=== PATIENT | female | born 1995 | race Caucasian/White ===

== ENCOUNTER 2021-01-18 15:32 | Inpatient (IN) | payer OTHER ==
[~2021-01-18] VITALS: Ht 170.2 cm; Wt 74.8 kg
[2021-01-18 16:16] LABS: HEMOGLOBIN 13.5 gm/dl (12.3-15.3); RED BLOOD COUNT 4.35 M/UL (4.00-5.10); WHITE BLOOD COUNT 13.2 K/UL (4.5-11.0)
[2021-01-20 04:50] LABS: HEMOGLOBIN 12.7 gm/dl (12.3-15.3)
[2021-01-21] MEDS ORDERED: COLACE 100MG C100 MG PO (13:48)
[2021-01-21] MEDS ORDERED: IBUPROFEN600 MG PO (13:48)
[2021-01-21] MEDS ORDERED: AZITHROMYCIN250 MG PO (13:48)
== END 2021-01-21 20:13 | disposition home or self-care (01) | DRG 805 ==
LOC: GENOP 15:32 → OB 15:51
PROVIDERS: Obstetrics & Gynecology; ADMIT Obstetrics & Gynecology
PROC: 4A1HXCZ Monitoring of Products of Conception, Cardiac Rate, External Approach (ICD-10-PCS; 2021-01-18)
PROC: 10E0XZZ Delivery of Products of Conception, External Approach (ICD-10-PCS; principal; 2021-01-19)
PROC: 3E033VJ Introduction of Other Hormone into Peripheral Vein, Percutaneous Approach (ICD-10-PCS; 2021-01-19)
PROC: 10907ZC Drainage of Amniotic Fluid, Therapeutic from Products of Conception, Via Natural or Artificial Opening (ICD-10-PCS; 2021-01-19)
DX: O48.0 Post-term pregnancy (principal); J18.9 Pneumonia, unspecified organism; Z37.0 Single live birth; O98.52 Other viral diseases complicating childbirth; O98.42 Viral hepatitis complicating childbirth; Z3A.40 40 weeks gestation of pregnancy; B00.9 Herpesviral infection, unspecified; B19.20 Unspecified viral hepatitis C without hepatic coma; Z20.822 Contact with and (suspected) exposure to COVID-19; O76 Abnormality in fetal heart rate and rhythm complicating labor and delivery; O70.1 Second degree perineal laceration during delivery; O99.52 Diseases of the respiratory system complicating childbirth
CPT/HCPCS: 36415; 51702; 71045; 80307; 81001; 82800; 85014; 85018; 85025; 94640; 94664; C9113; J0690; J2590; J2795; J3430; J7120; U0002